=== PATIENT | male | born 1985 | race Caucasian/White ===

== ENCOUNTER 2020-01-14 14:54 | Emergency (ER) | payer BC ==
[~2020-01-14] VITALS: Ht 167.6 cm; Wt 101.7 kg
[2020-01-14 16:06] LABS: BASO # 0.1 10^3/uL (0.0-0.2); BASO % 0.6 % (0.0-1.0); EOS # 0.1 10^3/uL (0.0-0.5); EOS % 1.1 % (0.0-3.0); HEMATOCRIT 46.9 % (42.0-52.0); HEMOGLOBIN 15.9 g/dl (13.5-17.5); LYMPH # 3.6 10^3/uL (1.5-5.0); LYMPH % 40.4 % (24.0-44.0); MEAN CORPUSCULAR HEMOGLOBIN 28.7 pg (27.0-33.0); MEAN CORPUSCULAR HGB CONC 33.9 g/dl (32.0-36.5); MEAN CORPUSCULAR VOLUME 84.7 fl (80.0-96.0); MONO # 0.8 10^3/uL (0.0-0.8); MONO % 8.5 % (0.0-5.0); NEUTROPHILS # 4.4 10^3/uL (1.5-8.5); NEUTROPHILS % 49.2 % (36.0-66.0); PLATELET COUNT, AUTOMATED 280 10^3/uL (150-450); RED BLOOD COUNT 5.54 10^6/uL (4.30-6.10)
[2020-01-14 16:40] LABS: ALBUMIN 4.5 GM/DL (3.2-5.2); BILIRUBIN,DIRECT 0.2 MG/DL (0.0-0.2); BILIRUBIN,TOTAL 0.7 MG/DL (0.2-1.0); TOTAL PROTEIN 7.7 GM/DL (6.4-8.2)
--- NOTE | 2020-01-14 17:38 | REPVR ---
PROCEDURE INFORMATION: Exam: US Abdomen Limited, Right Upper Quadrant Exam date and time: 01/14/2020 5:06 PM Age: 34 years old Clinical indication: Abdominal pain; Acute; Additional info: Ruq pain TECHNIQUE: Imaging protocol: Real-time ultrasound of the abdomen with image documentation. Examination was focused on the right upper quadrant. COMPARISON: No relevant prior studies available. FINDINGS: Liver: The liver appears diffusely echogenic. Gallbladder: No gallstones. No gallbladder wall thickening. Common bile duct: Normal. No stones. No dilation. Pancreas: The pancreas was obscured due to overlying bowel gas. Right kidney: Normal. No mass. No hydronephrosis. IMPRESSION: Diffuse hepatic steatosis. Electronically signed by: Martina Bejarano On 01/14/2020 17:38:05 PM
[2020-01-14 18:03] VITALS: BP 118/74
== END 2020-01-14 18:06 | disposition home or self-care (01) ==
LOC: M ED 14:54
DX: R10.9 Unspecified abdominal pain (principal); K21.9 Gastro-esophageal reflux disease without esophagitis; K76.0 Fatty (change of) liver, not elsewhere classified